=== PATIENT | male | born 1975 | race Hispanic/Latino ===

== ENCOUNTER 2022-01-09 14:31 | Inpatient (IN) | payer SELFPAY ==
[2022-01-09 14:47] LABS: Actual Bicarbonate (HCO3v) 4 mEq/L (22-28); Base Excess -28.2 mEq/L (-2.0 to +3.0); Calcium, Ionized (venous) 1.48 mmol/L (1.16-1.32); Chloride (VBG) 105 mmol/L (98-106); Hemoglobin (Hb) 15.2 g/dL (13.1-17.2); Potassium (VBG) 4.04 mmol/L (3.70-5.30); Puncture Site Other Site; RapidComm Collect By CBN; Sodium 139.3 mmol/L (133-146); pH (venous) 6.89 (7.32-7.43)
[2022-01-09 15:04] LABS: #Basophils 0.1 10x3/uL (0.0-0.2); #Eosinphils 0.2 10x3/uL (0.0-0.5); #Monocytes 1.7 10x3/uL (0.0-1.1); %Basophils 0.3 % (0.0-2.0); %Eosinophils 1.2 % (0.0-6.0); %Lymphocytes 3.6 % (18.0-47.0); %Monocytes 11.4 % (0.0-10.0); %Neutrophils 82.4 % (40.0-75.0); Hemoglobin 14.2 g/dL (13.5-17.5); Mean Corpuscular HGB CONC 32.3 g/dL (32.0-36.0); Mean Corpuscular Hemoglobin 32.1 pg (27.0-33.0); Mean Corpuscular Volume 99.3 fl (81.2-95.1); Mean Platelet Volume 11.1 fl (7.4-10.4); Platelet Count 222 10x3/uL (150-450); RBC Distribution Width 15.4 % (11.5-14.5); Red Blood Cell (RBC) Count 4.42 10x6/uL (4.32-5.72); White Blood Cell (WBC) Count 14.6 10x3/uL (3.5-10.5)
[2022-01-09] MEDS ORDERED: Ondansetron PF 4 MG/2 ML Vial ONE ×2 (15:07→15:15)
[2022-01-09] MEDS ORDERED: INSULIN REGULAR IN 0.9 % NACL 100 UNIT/100 ML BAG ONE (15:07)
[2022-01-09] MEDS ORDERED: Insulin Regular 300 UNITS/3 ML VIAL ONE (15:07)
[2022-01-09] MEDS ORDERED: Sodium Bicarb 50 MEQ/50 ML VIAL ONE ×2 (15:10)
[2022-01-09] MEDS ORDERED: Sodium Bicarb 50 MEQ/50 ML Abboject 8.4% SYRINGE ONE ×2 (15:13)
[2022-01-09 15:17] LABS: Phosphorus 6.4 mg/dL (2.3-4.7)
[2022-01-09] MEDS ORDERED: Sodium Bicarbonate 2.5 MEQ/5 ML VIAL ONE (15:17)
[2022-01-09 15:19] LABS: ALT (SGPT) 35 U/L (8-55); AST (SGOT) 15 U/L (5-34); Albumin 3.7 g/dL (3.5-5.0); Alkaline Phosphatase 138 U/L (40-110); BUN (Urea Nitrogen) 42 mg/dL (8.9-20.6); Bilirubin, Total 0.3 mg/dL (0.2-1.2); Calc. Creatinine Clearance 0 mL/min (70-130); Calcium 10.5 mg/dL (7.8-10.44); Chloride 107 mmol/L (98-107); Estimated GFR 31; Globulin 2.6 g/dL (2.4-3.5); Magnesium 3.1 mg/dL (1.6-2.6); Potassium 4.1 mmol/L (3.5-5.1); Protein, Total 6.3 g/dL (6.0-8.3); Sodium 137 mmol/L (136-145)
[2022-01-09 15:27] LABS: Carbon Dioxide Less than 8 mmol/L (22-29)
[2022-01-09 15:28] LABS: Glucose 825 mg/dL (70-105)
[2022-01-09] MEDS ORDERED: NS 0.9% w/ 20 MEQ KCL 1,000 ML ONE ×2 (15:45→17:59)
[2022-01-09 15:46] LABS: Lipase 9259 U/L (8-78)
[2022-01-09] MEDS ORDERED: Lorazepam 2 MG/ML VIAL ONE ×2 (15:47→17:47)
[2022-01-09] MEDS ORDERED: D5 1/2 NS w/20 mEq KCL 1,000 ML IV PRN ×2 (15:56→22:01)
[2022-01-09] MEDS ORDERED: NS 0.9% w/ 20 MEQ KCL 1,000 ML IV PRN ×2 (15:56)
[2022-01-09] MEDS ORDERED: Electrolyte Replacement Protocol IVPB SCH (15:56)
[2022-01-09] MEDS ORDERED: Dextrose 5 %-0.45 % NaCl 1,000 ML IV PRN (15:56)
[2022-01-09] MEDS ORDERED: Sodium Chloride 0.9% 1,000 ML IV PRN ×4 (15:56)
[2022-01-09] MEDS ORDERED: Ondansetron PF 4 MG/2 ML Vial IVP PRN (15:58)
[2022-01-09] MEDS ORDERED: Acetaminophen 325 MG TAB PO PRN (15:58)
[2022-01-09] MEDS ORDERED: Sodium Bicarbonate 150 MEQ in Dextrose 5% in Water 1,000 ML IV SCH (16:00)
[2022-01-09 17:09] LABS: BUN (Urea Nitrogen) 41 mg/dL (8.9-20.6); Calc. Creatinine Clearance 0 mL/min (70-130); Chloride 115 mmol/L (98-107); Estimated GFR 37; Potassium 3.5 mmol/L (3.5-5.1); Sodium 142 mmol/L (136-145)
[2022-01-09 17:19] LABS: Carbon Dioxide Less than 8 mmol/L (22-29); Glucose 688 mg/dL (70-105)
[2022-01-09 17:20] LABS: Phosphorus 3.3 mg/dL (2.3-4.7)
[2022-01-09 17:40] LABS: Bilirubin Neg (Negative); Blood, Urine 50 (Negative); Clarity Clear (Clear); Glucose, Urine (Dipstick) >=1000 mg/dL (Negative); Ketone, Urine 150 mg/dL (Negative); Leukocyte Negative (Negative); Nitrite Negative (Negative); Protein, Urine (Dipstick) 100 mg/dl (Neg-Trace); Specific Gravity, Urine 1.015 (1.005-1.030); Urobilinogen Normal mg/dL (Less than 2)
[2022-01-09 18:04] LABS: Bacteria/HPF 2+ HPF (None Seen); RBC/HPF 0-3 HPF (0-3); Renal Epithelial 0-3 HPF (None Seen); Squamous Epithelial None Seen HPF (0-3); WBC/HPF 0-3 HPF (0-3)
[2022-01-09 18:28] LABS: SARS-CoV-2 NAA Rapid Test Not Detected (NotDetected)
[2022-01-09 18:51] LABS: Lactic Acid 1.4 mmol/L (0.5-2.2)
[2022-01-09 19:33] VITALS: BMI 19.2
[2022-01-09] MEDS ORDERED: INSULIN REGULAR IN 0.9 % NACL 100 UNIT in Premix Bag 1 BAG IVPB SCH (20:30)
[2022-01-09] MEDS ORDERED: Potassium Chloride 20 MEQ TAB PO SCH (20:30)
[2022-01-09] MEDS: Thiamine HCl 200 MG/2 ML VIAL SLOW IVP SCH (20:51)
[2022-01-09] MEDS: Lorazepam 2 MG/ML VIAL SLOW IVP SCH (20:51)
[2022-01-09] MEDS ORDERED: Famotidine 20 MG TAB PO SCH (21:00)
[2022-01-09] MEDS ORDERED: Potassium Chloride 20 MEQ in Premix Bag 1 BAG IVPB SCH (21:00)
[2022-01-09 21:07] LABS: Lactic Acid 1.8 mmol/L (0.5-2.2)
[2022-01-09 21:11] LABS: Anion Gap 20 mmol/L (10-20); BUN (Urea Nitrogen) 38 mg/dL (8.9-20.6); Calc. Creatinine Clearance 45 mL/min (70-130); Calcium 10.3 mg/dL (7.8-10.44); Chloride 122 mmol/L (98-107); Estimated GFR 44; Potassium 3.2 mmol/L (3.5-5.1); Sodium 147 mmol/L (136-145)
[2022-01-09 21:20] LABS: Phosphorus 1.6 mg/dL (2.3-4.7)
[2022-01-09 21:24] LABS: Carbon Dioxide 8 mmol/L (22-29); Glucose 469 mg/dL (70-105)
[2022-01-09 21:32] LABS: Actual Bicarbonate (HCO3v) 8 mEq/L (22-28); Base Excess -19.9 mEq/L (-2.0 to +3.0); Chloride (VBG) 121 mmol/L (98-106); Critical Notified By: CP.JL; Hemoglobin (Hb) 15.5 g/dL (13.1-17.2); Potassium (VBG) 3.32 mmol/L (3.70-5.30); Puncture Site Other Site; RapidComm Collect By LAB
[2022-01-09 21:50] LABS: Hemoglobin A1c 12.8 % (4.0-6.0)
[2022-01-09] MEDS ORDERED: Potassium Phosphate 15 MMOL in Sodium Chloride 0.9% 100 ML IVPB SCH (22:00)
[2022-01-09] MEDS: 1/2 NS w/KCL 20 mEq 1,000 ML IV SCH (22:07)
[2022-01-10 00:56] LABS: Anion Gap 18 mmol/L (10-20); BUN (Urea Nitrogen) 36 mg/dL (8.9-20.6); Calc. Creatinine Clearance 49 mL/min (70-130); Calcium 10.4 mg/dL (7.8-10.44); Carbon Dioxide 12 mmol/L (22-29); Chloride 124 mmol/L (98-107); Estimated GFR 50; Glucose 293 mg/dL (70-105); Potassium 2.8 mmol/L (3.5-5.1)
[2022-01-10 00:59] LABS: Actual Bicarbonate (HCO3v) 12 mEq/L (22-28); Chloride (VBG) 122 mmol/L (98-106); Critical Notified By: CP.JL; Hemoglobin (Hb) 15.8 g/dL (13.1-17.2); Potassium (VBG) 3.03 mmol/L (3.70-5.30); RapidComm Collect By LAB; Sodium 156.4 mmol/L (133-146); pH (venous) 7.15 (7.32-7.43)
[2022-01-10] MEDS: Lorazepam 2 MG/ML VIAL SLOW IVP SCH ×6 (00:59→20:00)
[2022-01-10 01:06] LABS: Sodium 151 mmol/L (136-145)
[2022-01-10 01:30] LABS: Phosphorus Less than 1.0 mg/dL (2.3-4.7)
[2022-01-10] MEDS ORDERED: Potassium Phosphate 30 MMOL in Sodium Chloride 0.9% 250 ML 250 ML IVPB SCH ×2 (02:15→20:00)
[2022-01-10 04:26] LABS: #Monocytes 0.8 10x3/uL (0.0-1.1); #Neutrophils 6.3 10x3/uL (1.5-8.4); %Basophils 0.1 % (0.0-2.0); %Lymphocytes 2.7 % (18.0-47.0); %Monocytes 10.6 % (0.0-10.0); %Neutrophils 85.6 % (40.0-75.0); Mean Corpuscular HGB CONC 35.7 g/dL (32.0-36.0); Mean Corpuscular Volume 89.7 fl (81.2-95.1); Mean Platelet Volume 10.4 fl (7.4-10.4); Platelet Count 154 10x3/uL (150-450); RBC Distribution Width 14.3 % (11.5-14.5); Red Blood Cell (RBC) Count 4.37 10x6/uL (4.32-5.72); White Blood Cell (WBC) Count 7.3 10x3/uL (3.5-10.5)
[2022-01-10 04:35] LABS: ALT (SGPT) 32 U/L (8-55); AST (SGOT) 17 U/L (5-34); Albumin 3.6 g/dL (3.5-5.0); Alkaline Phosphatase 116 U/L (40-110); Anion Gap 15 mmol/L (10-20); BUN (Urea Nitrogen) 33 mg/dL (8.9-20.6); Bilirubin, Total 0.3 mg/dL (0.2-1.2); Calc. Creatinine Clearance 56 mL/min (70-130); Carbon Dioxide 15 mmol/L (22-29); Chloride 128 mmol/L (98-107); Estimated GFR 58; Globulin 2.9 g/dL (2.4-3.5); Glucose 171 mg/dL (70-105); Potassium 2.8 mmol/L (3.5-5.1); Protein, Total 6.5 g/dL (6.0-8.3)
[2022-01-10 04:40] LABS: Sodium 155 mmol/L (136-145)
[2022-01-10 05:30] LABS: Phosphorus Less than 1.0 mg/dL (2.3-4.7)
[2022-01-10] MEDS ORDERED: [UNRECOGNIZED DRUG - OTHER] IV SCH (05:30)
[2022-01-10] MEDS ORDERED: [UNRECOGNIZED DRUG - OTHER] IV SCH (05:30)
[2022-01-10] MEDS ORDERED: POTASSIUM CHLORIDE IV SCH ×2 (05:30)
[2022-01-10] MEDS ORDERED: SODIUM CHLORIDE IV SCH ×2 (05:30)
[2022-01-10] MEDS: Enoxaparin Sodium 40 MG/0.4 ML SYRINGE SC SCH (07:58)
[2022-01-10] MEDS: Famotidine 20 MG TAB PO SCH ×2 (07:59→22:44)
[2022-01-10] MEDS ORDERED: FLU VACC QS2022-23(6MOS UP)/PF 60 MCG/0.5 ML SYRINGE IM ONE (09:00)
[2022-01-10] MEDS: 1/2 NS w/KCL 20 mEq 1,000 ML IV SCH (09:01)
[2022-01-10 09:42] LABS: Phosphorus 1.5 mg/dL (2.3-4.7)
[2022-01-10 09:51] LABS: Anion Gap 15 mmol/L (10-20); BUN (Urea Nitrogen) 30 mg/dL (8.9-20.6); Calc. Creatinine Clearance 63 mL/min (70-130); Calcium 9.5 mg/dL (7.8-10.44); Carbon Dioxide 14 mmol/L (22-29); Cardiac Risk 15.5 (Less than 4.5); Chloride 130 mmol/L (98-107); Cholesterol 341 mg/dl (< 200 Desired); Estimated GFR 66; Glucose 161 mg/dL (70-105); HDL Cholesterol 22 mg/dL (>60 Neg Risk); LDL Cholesterol, Calculated 249 mg/dL; Potassium 2.8 mmol/L (3.5-5.1); Triglycerides 349 mg/dL (Less than 150)
[2022-01-10 10:04] LABS: Lipase 1647 U/L (8-78)
[2022-01-10 10:13] LABS: Sodium 156 mmol/L (136-145)
[2022-01-10] MEDS ORDERED: Potassium Phosphate 30 MMOL in Sodium Chloride 0.9% 500 ML IVPB SCH (10:30)
[2022-01-10] MEDS: Sodium Bicarbonate 50 MEQ, Admixture Fee 1 EACH in Dextrose 5% in Water 1,000 ML IV SCH ×2 (11:12→18:12)
[2022-01-10 13:10] LABS: Anion Gap 12 mmol/L (10-20); BUN (Urea Nitrogen) 27 mg/dL (8.9-20.6); Calc. Creatinine Clearance 69 mL/min (70-130); Calcium 9.3 mg/dL (7.8-10.44); Carbon Dioxide 16 mmol/L (22-29); Chloride 131 mmol/L (98-107); Estimated GFR 75; Glucose 168 mg/dL (70-105); Potassium 2.7 mmol/L (3.5-5.1)
[2022-01-10 13:18] LABS: Sodium 156 mmol/L (136-145)
[2022-01-10] MEDS ORDERED: Acetaminophen 650 MG Suppository PR PRN (17:56)
[2022-01-10] MEDS: Dextrose 5% in Water 1,000 ML IV SCH (18:10)
[2022-01-10 18:14] LABS: Puncture Site Other Site
[2022-01-10 18:41] LABS: Anion Gap 14 mmol/L (10-20); BUN (Urea Nitrogen) 25 mg/dL (8.9-20.6); Calc. Creatinine Clearance 74 mL/min (70-130); Calcium 9.1 mg/dL (7.8-10.44); Carbon Dioxide 16 mmol/L (22-29); Chloride 128 mmol/L (98-107); Estimated GFR 81; Glucose 191 mg/dL (70-105)
[2022-01-10 18:45] LABS: Potassium 2.6 mmol/L (3.5-5.1); Sodium 155 mmol/L (136-145)
[2022-01-10 18:46] LABS: Albumin 3.3 g/dL (3.5-5.0); Anion Gap 14 mmol/L (10-20); BUN (Urea Nitrogen) 25 mg/dL (8.9-20.6); BUN/Creatinine Ratio 22.12; Calc. Creatinine Clearance 74 mL/min (70-130); Calcium 9.3 mg/dL (7.8-10.44); Carbon Dioxide 16 mmol/L (22-29); Chloride 127 mmol/L (98-107); Estimated GFR 81; Glucose 191 mg/dL (70-105); Magnesium 2.2 mg/dL (1.6-2.6); Phosphorus 2.1 mg/dL (2.3-4.7); Phosphorus 2.2 mg/dL (2.3-4.7); Potassium 2.5 mmol/L (3.5-5.1); Sodium 154 mmol/L (136-145)
[2022-01-10] MEDS: Thiamine HCl 200 MG/2 ML VIAL SLOW IVP SCH (20:00)
[2022-01-10 21:28] LABS: Anion Gap 12 mmol/L (10-20); BUN (Urea Nitrogen) 23 mg/dL (8.9-20.6); Calc. Creatinine Clearance 81 mL/min (70-130); Carbon Dioxide 16 mmol/L (22-29); Chloride 126 mmol/L (98-107); Estimated GFR 91; Glucose 230 mg/dL (70-105)
[2022-01-10 21:32] LABS: Sodium 151 mmol/L (136-145)
[2022-01-11 01:07] LABS: Anion Gap 11 mmol/L (10-20); BUN (Urea Nitrogen) 20 mg/dL (8.9-20.6); Calc. Creatinine Clearance 99 mL/min (70-130); Calcium 9.1 mg/dL (7.8-10.44); Carbon Dioxide 20 mmol/L (22-29); Chloride 124 mmol/L (98-107); Estimated GFR 109; Glucose 157 mg/dL (70-105)
[2022-01-11 01:10] LABS: Potassium 2.3 mmol/L (3.5-5.1); Sodium 153 mmol/L (136-145)
[2022-01-11] MEDS: Sodium Bicarbonate 50 MEQ, Admixture Fee 1 EACH in Dextrose 5% in Water 1,000 ML IV SCH ×3 (01:54→16:41)
[2022-01-11 05:04] LABS: Anion Gap 15 mmol/L (10-20); BUN (Urea Nitrogen) 17 mg/dL (8.9-20.6); Calc. Creatinine Clearance 105 mL/min (70-130); Carbon Dioxide 18 mmol/L (22-29); Chloride 119 mmol/L (98-107); Estimated GFR 111; Glucose 206 mg/dL (70-105); Sodium 150 mmol/L (136-145)
[2022-01-11 05:06] LABS: Phosphorus 2.8 mg/dL (2.3-4.7)
[2022-01-11 05:08] LABS: Potassium 2.4 mmol/L (3.5-5.1)
[2022-01-11] MEDS: Potassium Chloride 20 MEQ in Premix Bag 1 BAG IVPB SCH ×2 (06:34→09:09)
[2022-01-11] MEDS ORDERED: HumaLOG 300 UNITS/3 ML VIAL SC PRN (07:28)
[2022-01-11] MEDS ORDERED: Dextrose 50% Abboject 50 ML SYRINGE SLOW IVP PRN (07:28)
[2022-01-11] MEDS: Potassium Phosphate 30 MMOL in Sodium Chloride 0.9% 250 ML 250 ML IVPB SCH ×2 (07:28→14:24)
[2022-01-11] MEDS ORDERED: Dextrose 5% in Water 1,000 ML IV PRN (07:28)
[2022-01-11] MEDS ORDERED: Lantus 1000 UNITS/10 ML VIAL SC SCH ×3 (07:30→21:00)
[2022-01-11] MEDS: Famotidine 20 MG TAB PO SCH ×3 (08:03→22:11)
[2022-01-11] MEDS: Enoxaparin Sodium 40 MG/0.4 ML SYRINGE SC SCH (08:03)
[2022-01-11 09:02] LABS: Lipase 230 U/L (8-78)
[2022-01-11] MEDS: Potassium Bicarbonate/Cit Ac 20 MEQ TAB PO SCH ×4 (09:34→22:11)
[2022-01-11] MEDS: Dextrose 5% in Water 1,000 ML IV SCH (12:14)
[2022-01-11 12:24] LABS: Anion Gap 15 mmol/L (10-20); BUN (Urea Nitrogen) 12 mg/dL (8.9-20.6); Calc. Creatinine Clearance 107 mL/min (70-130); Calcium 8.7 mg/dL (7.8-10.44); Carbon Dioxide 21 mmol/L (22-29); Chloride 113 mmol/L (98-107); Estimated GFR 111; Glucose 312 mg/dL (70-105); Potassium 2.8 mmol/L (3.5-5.1); Sodium 146 mmol/L (136-145)
[2022-01-11] MEDS ORDERED: Thiamine HCl 200 MG/2 ML VIAL SLOW IVP SCH (15:45)
[2022-01-11] MEDS ORDERED: NPH, Human Insulin Isophane 300 UNIT/3 ML VIAL SC SCH (16:00)
[2022-01-11] MEDS: HumaLOG 300 UNITS/3 ML VIAL SC PRN (17:10)
[2022-01-11 19:19] LABS: Albumin 3.2 g/dL (3.5-5.0); Anion Gap 13 mmol/L (10-20); BUN (Urea Nitrogen) 10 mg/dL (8.9-20.6); BUN/Creatinine Ratio 14.08; Calc. Creatinine Clearance 118 mL/min (70-130); Calcium 8.9 mg/dL (7.8-10.44); Carbon Dioxide 26 mmol/L (22-29); Chloride 110 mmol/L (98-107); Estimated GFR 115; Glucose 285 mg/dL (70-105); Magnesium 1.9 mg/dL (1.6-2.6); Phosphorus 3.1 mg/dL (2.3-4.7); Potassium 2.8 mmol/L (3.5-5.1); Sodium 146 mmol/L (136-145)
[2022-01-11] MEDS: Thiamine HCl 200 MG/2 ML VIAL SLOW IVP SCH (22:11)
[2022-01-12] MEDS: HumaLOG 300 UNITS/3 ML VIAL SC PRN ×4 (01:47→16:30)
[2022-01-12] MEDS: Sodium Bicarbonate 50 MEQ, Admixture Fee 1 EACH in Dextrose 5% in Water 1,000 ML IV SCH (01:59)
[2022-01-12 03:51] LABS: Actual Bicarbonate (HCO3v) 31 mEq/L (22-28); Base Excess 8.3 mEq/L (-2.0 to +3.0); Calcium, Ionized (venous) 1.12 mmol/L (1.16-1.32); Chloride (VBG) 104 mmol/L (98-106); Critical Notified By: CP.JL; Potassium (VBG) 2.34 mmol/L (3.70-5.30); Puncture Site Other Site; RapidComm Collect By LAB; Sodium 140.2 mmol/L (133-146); pH (venous) 7.57 (7.32-7.43)
[2022-01-12 03:59] LABS: INR-International Normal Ratio 1.2; PTT 31.2 sec (22.0-33.0); Prothrombin Time 12.4 sec (9.5-12.1)
[2022-01-12 04:00] LABS: Anion Gap 11 mmol/L (10-20); BUN (Urea Nitrogen) 9 mg/dL (8.9-20.6); Calc. Creatinine Clearance 123 mL/min (70-130); Calcium 8.9 mg/dL (7.8-10.44); Carbon Dioxide 28 mmol/L (22-29); Chloride 105 mmol/L (98-107); Estimated GFR 116; Glucose 206 mg/dL (70-105); Sodium 142 mmol/L (136-145)
[2022-01-12 04:01] LABS: ALT (SGPT) 23 U/L (8-55); AST (SGOT) 18 U/L (5-34); Albumin 3.1 g/dL (3.5-5.0); Alkaline Phosphatase 78 U/L (40-110); Bilirubin, Direct 0.2 mg/dL (0.1-0.3); Bilirubin, Total 0.7 mg/dL (0.2-1.2); Protein, Total 5.5 g/dL (6.0-8.3)
[2022-01-12 05:04] LABS: Potassium 2.3 mmol/L (3.5-5.1)
[2022-01-12] MEDS ORDERED: Potassium Phosphate 30 MMOL in Sodium Chloride 0.9% 250 ML 250 ML IVPB SCH (07:30)
[2022-01-12] MEDS: Enoxaparin Sodium 40 MG/0.4 ML SYRINGE SC SCH (08:19)
[2022-01-12] MEDS: Thiamine HCl 200 MG/2 ML VIAL SLOW IVP SCH ×3 (08:21→20:25)
[2022-01-12] MEDS: Potassium Chloride 20 MEQ TAB PO SCH ×4 (08:21→20:25)
[2022-01-12] MEDS: Famotidine 20 MG TAB PO SCH ×2 (08:22→20:25)
[2022-01-12] MEDS: Dextrose 5% in Water 1,000 ML IV SCH (08:25)
[2022-01-12] MEDS ORDERED: Lantus 1000 UNITS/10 ML VIAL SC SCH ×2 (13:00→21:00)
[2022-01-13] MEDS: HumaLOG 300 UNITS/3 ML VIAL SC PRN ×6 (00:41→20:45)
[2022-01-13 05:18] LABS: Anion Gap 14 mmol/L (10-20); BUN (Urea Nitrogen) 9 mg/dL (8.9-20.6); Calc. Creatinine Clearance 115 mL/min (70-130); Calcium 9.3 mg/dL (7.8-10.44); Carbon Dioxide 28 mmol/L (22-29); Chloride 107 mmol/L (98-107); Estimated GFR 114; Glucose 174 mg/dL (70-105); Potassium 3.7 mmol/L (3.5-5.1); Sodium 145 mmol/L (136-145)
[2022-01-13] MEDS: Dextrose 5% in Water 1,000 ML IV SCH (05:45)
[2022-01-13] MEDS: Famotidine 20 MG TAB PO SCH ×2 (08:45→20:44)
[2022-01-13] MEDS: Thiamine HCl 200 MG/2 ML VIAL SLOW IVP SCH (08:45)
[2022-01-13] MEDS: Enoxaparin Sodium 40 MG/0.4 ML SYRINGE SC SCH (08:45)
[2022-01-13] MEDS: Folic Acid 1 MG TAB PO SCH (09:04)
[2022-01-13] MEDS ORDERED: Ondansetron ODT 4 MG TAB PO PRN (09:42)
[2022-01-13] MEDS ORDERED: Lantus 1000 UNITS/10 ML VIAL SC SCH (21:00)
[2022-01-14] MEDS: HumaLOG 300 UNITS/3 ML VIAL SC PRN ×2 (01:23→05:59)
[2022-01-14] MEDS: Dextrose 5% in Water 1,000 ML IV SCH (04:55)
[2022-01-14 05:00] LABS: Anion Gap 13 mmol/L (10-20); BUN (Urea Nitrogen) 10 mg/dL (8.9-20.6); Calc. Creatinine Clearance 110 mL/min (70-130); Calcium 9.7 mg/dL (7.8-10.44); Carbon Dioxide 29 mmol/L (22-29); Chloride 103 mmol/L (98-107); Estimated GFR 112; Glucose 190 mg/dL (70-105); Potassium 3.9 mmol/L (3.5-5.1); Sodium 141 mmol/L (136-145)
[2022-01-14 08:14] VITALS: BP 129/84; TEMP 98.3
[2022-01-14] MEDS ORDERED: Thiamine HCl 200 MG/2 ML VIAL SLOW IVP SCH (09:00)
[2022-01-14] MEDS: Famotidine 20 MG TAB PO SCH (09:25)
[2022-01-14] MEDS: Folic Acid 1 MG TAB PO SCH (09:25)
[2022-01-14] MEDS: Enoxaparin Sodium 40 MG/0.4 ML SYRINGE SC SCH (09:25)
[2022-01-19] MEDS ORDERED: Thiamine HCl 200 MG/2 ML VIAL SLOW IVP SCH (09:00)
== END 2022-01-14 11:27 | disposition home or self-care (01) | DRG 438 ==
LOC: SUATTDRO 14:31 → CSHERS 14:31 → CSHIMCU 19:27 → CSHTELE 01-12 17:28
PROVIDERS: ADMIT Internal Medicine; ATTEND Family Medicine
DX: K85.20 Alcohol induced acute pancreatitis without necrosis or infection (principal); E11.10 Type 2 diabetes mellitus with ketoacidosis without coma; G93.41 Metabolic encephalopathy; N17.9 Acute kidney failure, unspecified; F10.239 Alcohol dependence with withdrawal, unspecified; E87.0 Hyperosmolality and hypernatremia; E83.39 Other disorders of phosphorus metabolism; D72.829 Elevated white blood cell count, unspecified; E86.0 Dehydration; E87.6 Hypokalemia; Z20.822 Contact with and (suspected) exposure to COVID-19
CPT/HCPCS: 36415; 36416; 71045; 74176; 80048; 80053; 80061; 80076; 81003; 81015; 82010; 82550; 82805; 83036; 83605; 83690; 83735; 83930; 84100; 84484; 85025; 85610; 85730; 87040; 93005; 94760; 96374; 96375; 96376; A4217; J1650; J1815; J2060; J2405; J3411; J3480; J3490; J7030; J7050; J7070